=== PATIENT | male | born 1935 | race Caucasian/White ===

== ENCOUNTER 2019-04-11 10:21 | Emergency (ER) | payer MEDICARE, OTHER, SELFPAY ==
--- NOTE | 2019-04-11 10:55 | DI.RAD.S_ITS ---
PROCEDURE: XR HIP W PEL IF DONE LT 2V INDICATIONS: fall TECHNIQUE: 3 views of the hip were acquired. COMPARISON: [facility] [place], CR, XR PELVIS WITH BILATERAL LATERAL HIPS, 10/21/2017, 14:53. FINDINGS: Bones: No fractures or dislocations. A left hip prosthesis is redemonstrated without change in alignment. A periprosthetic lucency medial to the left acetabular component appears similar to the prior study. There is mild axial joint space narrowing in the right hip there The visualized pelvic ring appears intact. Soft tissues: There are scattered vascular calcifications IMPRESSION: 1. No fracture or dislocation. 2. No definite evidence of hardware failure. Dictated by: Benjamin Herzog M.D. on 04/11/2019 at 12:12 Approved by: Benjamin Herzog M.D. on 04/11/2019 at 12:15
[2019-04-11 11:17] VITALS: BP 162/79; PULSE 57; RESP 12; TEMP 36.3; O2SAT 99
--- NOTE | 2019-04-11 11:23 | DI.CT.S_ITS ---
PROCEDURE: CT HEAD/BRAIN WO CON INDICATIONS: glf yesterday, hit head, dizzy TECHNIQUE: Noncontrast 4.5 mm thick angled axial sections acquired from the foramen magnum to the vertex, with coronal and sagittal reformats. For radiation dose reduction, the following was used: automated exposure control, adjustment of mA and/or kV according to patient size. COMPARISON: None. FINDINGS: Image quality: Excellent. CSF spaces: Basal cisterns are patent. No extra-axial fluid collections. The ventricles are symmetric in size and shape. Brain: No intracranial bleeds or masses. There is moderate cerebral volume loss for age, with resultant ventricular and sulcal prominence. There are moderate periventricular and deep white matter chronic small vessel ischemic changes. Chronic left thalamic lacunar infarct. There is intracranial internal carotid artery atherosclerosis. Skull and face: Calvarium and visualized facial bones appear intact, without suspicious lesions. Sinuses: Visualized sinuses and mastoids are clear. IMPRESSION: No acute intracranial disease process. Dictated by: Mari Cortes MD, PhD on 04/11/2019 at 11:00 Approved by: Mari Cortes MD, PhD on 04/11/2019 at 11:05
[2019-04-11] MEDS: LIDOCAINE PATCH 1 EACH ADH..PATCH TOP (11:30)
--- NOTE | 2019-04-11 11:35 | PC.NURSE ---
received report from LUCIUS Harrell. pt [facility], family at side reports he fell yesterday on laminate albino onto L hip and L shoulder, was able to crawl to chair and lift himself up. can partially bear weight with walker. 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 denies pain at time, only reporting pain while partially bearing wgt. 2+ pulses. lidocaine patch applied. XR obtained. awaiting head CT. appears calm and comfortable at this time.
--- NOTE | 2019-04-11 12:21 | ED.LOWEXIN ---
HPI - Extremity Injury (Lower) <MARTA Rowell - Last Filed: 04/11/19 14:05> General Chief Complaint: Extremity Injury, Lower Stated Complaint: fell Time Seen by Provider: 04/11/19 11:09 Source: patient and family Mode of arrival: Wheelchair Limitations: no limitations History of Present Illness HPI Narrative: The patient is an 83-year-old male who presents with his with a history of left hip replacement hypertension who presents with a chief complaint of hip pain. He had a ground level trip and fall yesterday and landed on his left hip. He states that is the side that has been replaced. He denies any neck or back pain. He does state that he hit his head on the floor. No loss of consciousness. He was dizzy this morning, states that is normal for him. Patient states that he is able to ambulate with a walker, though slightly painful to do so. Denies pain on my exam. Related Data Home Medications Medication Instructions Recorded Confirmed metformin [Glucophage] 1,000 mg PO BIDCC #0 04/20/16 04/11/19 amlodipine 5 mg PO DAILY 04/11/19 04/11/19 atorvastatin 10 mg PO DAILY 04/11/19 04/11/19 [id number] [Creon] 0 cap PO DIRECTED 04/11/19 04/11/19 losartan 100 mg PO DAILY 04/11/19 04/11/19 Previous Rx's Medication Instructions Recorded lidocaine 1 patch TOP DAILY #15 each 04/11/19 Allergies Allergy/AdvReac Type Severity Reaction Status Date / Time amoxicillin [From AUGMENTIN] Allergy Mild EVERYTHING Unverified 10/14/17 13:11 SHUTS DOWN clavulanic acid Allergy Mild EVERYTHING Unverified 10/14/17 13:11 [From AUGMENTIN] SHUTS DOWN Review of Systems <MARTA Rowell - Last Filed: 04/11/19 14:05> Review of Systems Narrative: GENERAL: Denies chills, fatigue, malaise, fever, sweats. HEENT: Denies sinus pain, ear pain, sore throat, difficulty swallowing, dizziness. RESPIRATORY: Denies dyspnea, cough, wheezing, hemoptysis, sputum. CARDIOVASCULAR: Denies chest pain, palpitations, orthopnea, edema, GASTROINTESTINAL: Denies nausea, vomiting, abdominal pain, diarrhea, constipation, melena. : Denies dysuria, frequency, incontinence, hematuria, urinary retention. MUSCULOSKELETAL: See HPI SKIN: Denies rash, skin lesions, or other NEUROLOGIC: Denies weakness, headache, numbness, change in speech, confusion, seizures, incoordination. PSYCHIATRIC: No concerning psychosocial issues. 12 point review of systems is negative except for those stated above PFSH <MARTA Rowell - Last Filed: 04/11/19 14:05> Social History (Updated 04/11/19 @ 14:00 by MARTA Rowell) marital status: Social History marital status: Exam <MARTA Rowell - Last Filed: 04/11/19 14:05> Narrative Exam Narrative: GENERAL: Elderly male in no acute distress HEAD: Atraumatic. Normocephalic. No temporal or scalp tenderness. EYES: Pupils equal round and reactive. Extraocular motions intact. No scleral icterus. No injection or drainage. ENT: Nose without bleeding, purulent drainage or septal hematoma. Throat without erythema, tonsillar hypertrophy or exudate. Uvula midline. Airway patent. Hard of hearing. NECK: Trachea midline. No JVD or lymphadenopathy. Supple, nontender, no meningeal signs. CARDIOVASCULAR: Regular rate and rhythm without murmurs, gallops, or rubs. RESPIRATORY: Clear to auscultation. Breath sounds equal bilaterally. No wheezes, rales, or rhonchi. No cough. No increased respiratory effort. No accessory muscle use. GASTROINTESTINAL: Abdomen soft, non-tender, nondistended. No hepato-splenomegaly, or palpable masses. No guarding. EXTREMITIES: No clubbing, cyanosis, or edema. No joint tenderness, effusion, or edema noted. Slight pain to palpation of left hip. Positive pedal pulses bilateral lower extremities. BACK: Nontender without deformity or crepitance. No flank tenderness. NEURO: AOx3. SKIN: No ecchymosis erythema laceration or abrasion noted on left hip. Initial Vital Signs Initial Vital Signs: Vital Signs Temperature 97.4 F L 04/11/19 11:17 Pulse Rate 57 L 04/11/19 11:17 Respiratory Rate 12 04/11/19 11:17 Blood Pressure 162/79 H 04/11/19 11:17 Pulse Oximetry 99 04/11/19 11:17 <Fela Fisher DO - Last Filed: 04/11/19 19:28> Initial Vital Signs Initial Vital Signs: Vital Signs Temperature 97.4 F L 04/11/19 11:17 Pulse Rate 57 L 04/11/19 11:17 Respiratory Rate 12 04/11/19 11:17 Blood Pressure 162/79 H 04/11/19 11:17 Pulse Oximetry 99 04/11/19 11:17 Scores <MARTA Rowell - Last Filed: 04/11/19 14:05> GCS [place] coma scale eye opening: Spontaneous Markos coma scale verbal response: Orientated Markos coma scale motor response: Obey commands [place] coma scale total score: 15 Nexus Score for C-Spine Focal Neurologic deficit present: No Midline spinal tenderness present: No Altered level of conciousness present: No Intoxication present: No Distracting Injury Present: No Nexus Criteria for C-spine: 0 Course <MARTA Rowell - Last Filed: 04/11/19 14:05> Orders Ordered: ED Orders 04/11/19 10:55 XR hip w pel if done LT 2V Stat 04/11/19 11:23 CT head/brain wo con Stat Discontinued Medications Lidocaine (Lidoderm) 1 each TOP NOW ONE Stop: 04/11/19 11:24 Last Admin: 04/11/19 11:30 Dose: 1 each Documented by: JORDYN Vital Signs Vital signs: Vital Signs - 8 hr 04/11/19 13:15 Pulse Rate 60 Respiratory Rate 16 Blood Pressure 158/72 H Pulse Oximetry 97 <Fela Fisher DO - Last Filed: 04/11/19 19:28> Orders Ordered: ED Orders 04/11/19 10:55 XR hip w pel if done LT 2V Stat 04/11/19 11:23 CT head/brain wo con Stat Discontinued Medications Lidocaine (Lidoderm) 1 each TOP NOW ONE Stop: 04/11/19 11:24 Last Admin: 04/11/19 11:30 Dose: 1 each Documented by: JORDYN Vital Signs Vital signs: Vital Signs - 8 hr 04/11/19 13:15 Pulse Rate 60 Respiratory Rate 16 Blood Pressure 158/72 H Pulse Oximetry 97 MDM - Extremity Injury (Lower) <MARTA Rowell - Last Filed: 04/11/19 14:05> Imaging Data CT scan - head: Radiologist's impression: [address] [address] [address] Scan Report Signed Patient: Edwar Saleh PMR#: [id number] : 8Acct:[id number] Age/Sex: 83 / MDate of Service: 04/11/19 Loc: ED Accession Number: [id number] Procedure: CT head/brain wo con Ordering Provider: Fela Ely PROCEDURE: CT HEAD/BRAIN WO CON INDICATIONS: glf yesterday, hit head, dizzy TECHNIQUE: Noncontrast 4.5 mm thick angled axial sections acquired from the foramen magnum to the vertex, with coronal and sagittal reformats. For radiation dose reduction, the following was used: automated exposure control, adjustment of mA and/or kV according to patient size. COMPARISON: None. FINDINGS: Image quality: Excellent. CSF spaces: Basal cisterns are patent. No extra-axial fluid collections. The ventricles are symmetric in size and shape. Brain: No intracranial bleeds or masses. There is moderate cerebral volume loss for age, with resultant ventricular and sulcal prominence. There are moderate periventricular and deep white matter chronic small vessel ischemic changes. Chronic left thalamic lacunar infarct. There is intracranial internal carotid artery atherosclerosis. Skull and face: Calvarium and visualized facial bones appear intact, without suspicious lesions. Sinuses: Visualized sinuses and mastoids are clear. IMPRESSION: No acute intracranial disease process. Dictated by: Mari Cortes MD, PhD on 04/11/2019 at 11:00 Approved by: Mari Cortes MD, PhD on 04/11/2019 at 11:05 hip xray : Radiologist's impression: [address] [address] XRay Report Signed Patient: Edwar Saleh PMR#: [id number] : 8Acct:[id number] Age/Sex: 83 / MDate of Service: 04/11/19 Loc: ED Accession Number: [id number] Procedure: XR hip w pel if done LT 2V Ordering Provider: Fela Fisher D.O. PROCEDURE: XR HIP W PEL IF DONE LT 2V INDICATIONS: fall TECHNIQUE: 3 views of the hip were acquired. COMPARISON: [facility] [place], CR, XR PELVIS WITH BILATERAL LATERAL HIPS, 10/21/2017, 14:53. FINDINGS: Bones: No fractures or dislocations. A left hip prosthesis is redemonstrated without change in alignment. A periprosthetic lucency medial to the left acetabular component appears similar to the prior study. There is mild axial joint space narrowing in the right hip there The visualized pelvic ring appears intact. Soft tissues: There are scattered vascular calcifications IMPRESSION: 1. No fracture or dislocation. 2. No definite evidence of hardware failure. Dictated by: Benjamin Herzog M.D. on 04/11/2019 at 12:12 Approved by: Benjamin Herzog M.D. on 04/11/2019 at 12:15 MDM Narrative Medical decision making narrative: The patient is an 83-year-old male who presents 1 day after a ground level slipper trip and fall the chief complaint of hip pain. He was able to ambulate on his way into the emergency department. He is not on blood thinners, but states he hit his head, so his CT scan was completed to evaluate for intracranial bleeds. This came back negative. The patient was neurovascularly intact. He states that his pain is only when ambulating. He was given a lidocaine patch. He was able to ambulate well with a walker and had negative x-rays. The patient stated he fell ready to go home, and agreed. I discussed at length coming back to emergency department for any acute concerns such as chest pain, shortness of breath etc. Encouraged follow-up with PCP as well as Orthopedics if needed. No questions or concerns upon discharge. Patient's states understanding of follow-up care as well as return precautions. Discharge Plan Departure Patient Disposition: Home Clinical Impression: Fall from ground level, Right inguinal hernia Acute hip pain Qualifiers: Laterality: right Qualified Code(s): M25.551 - Pain in right hip Discharge Date/Time: 04/11/19 13:00 Instructions: How to Choose and Use a Walker, Help for Hip Pain, DI for Contusion, DI for Hip Pain Activity Restrictions/Additional Instructions: Your x-ray of your hip came back with no acute fractures and your able to ambulate well with a walker. Please follow up with primary care provider as well as Orthopedics. Please use ice, [id number] medications as needed for pain. I have given you a prescription of lidocaine patch. Please come back to emergency department for any acute concerns such as chest pain, shortness of breath concern of heart attack stroke etc Prescriptions: New lidocaine 5 % adhesive patch,medicated 1 patch TOP DAILY Qty: 15 RF: 0 No Action metformin [Glucophage] 1,000 MG tablet 1,000 mg PO BIDCC Qty: 0 RF: 0 atorvastatin 10 mg tablet 10 mg PO DAILY RF: 0 amlodipine 5 mg tablet 5 mg PO DAILY RF: 0 losartan 100 mg tablet 100 mg PO DAILY RF: 0 Creon 12,000-38,000 -60,000 unit capsule,delayed release(DR/EC) 0 cap PO DIRECTED RF: 0 Referrals: Christina Mae MD [Family Provider] -
--- NOTE | 2019-04-11 12:29 | PC.NURSE ---
Pt appears comfortable. updated on results of CT and XR. NAD.
--- NOTE | 2019-04-11 12:48 | PC.NURSE ---
Ambulated pt to BR wit walker. pt tolerated well. gait is slow. assisted to dress and awaiting DC
[2019-04-11 13:15] VITALS: BP 158/72; PULSE 60; RESP 16; O2SAT 97
== END 2019-04-11 13:00 | disposition home or self-care (01) ==
PROVIDERS: Emergency Provider Nurse Practitioner Family; Family Provider Student in an Organized Health Care Education/Training Program
DX: M25.551 Pain in right hip (principal); K40.90 Unilateral inguinal hernia, without obstruction or gangrene, not specified as recurrent; R42 Dizziness and giddiness; S09.90XA Unspecified injury of head, initial encounter; W01.0XXA Fall on same level from slipping, tripping and stumbling without subsequent striking against object, initial encounter
CPT/HCPCS: 70450; 73502; 99282; 99284

== ENCOUNTER → 2019-05-03 11:00 | Outpatient (CLI) | payer MEDICARE, OTHER, SELFPAY ==
--- NOTE | 2019-05-03 | DI.NM.S_ITS ---
PROCEDURE: NM BONE SCAN WHOLE BODY RADIOPHARMACEUTICAL: 20.7 mCi Tc-99m MDP IV. INDICATIONS: Pain in left hip TECHNIQUE: Delayed whole-body scintigrams were obtained approximately 3-4 hours after intravenous injection of radiotracer. Anterior and posterior views were acquired from vertex to feet. Additional left and right oblique views of the thoracic cage and pelvis were obtained. COMPARISON: [facility], CR, XR HIP W PEL IF DONE LT 2V, 04/11/2019, 11:02. [facility] [place], CR, XR PELVIS WITH BILATERAL LATERAL HIPS, 10/21/2017, 14:53. [facility] [place], CR, XR PELVIS WITH LATERAL HIP LEFT, 04/26/2019, 14:14. FINDINGS: There is a focal uptake in the posterior medial aspect of the left seventh rib. There is postsurgical changes with left hip arthroplasty. Increased uptake is seen in the area of the left greater trochanter, which could represent subacute fracture. No lesions are identified in skull, sternum, clavicles, scapulae, bony pelvis, and visualized shafts of the long bones. There is low level increased uptake in cervical, thoracic and lumbar spine with distribution indistinguishable from degenerative disc and facet disease. Increased uptake in shoulders bilaterally with bilaterally and hands bilaterally, consistent with degenerative joint disease. IMPRESSION: 1. Left hip arthroplasty. There is increased uptake in the area of the left greater trochanter which could represent subacute fracture. 2. Increased activity in the posterior medial aspect of the left seventh rib. Recommend radiographic correlation. Dictated by: Tamiko Peñaloza M.D. on 05/03/2019 at 17:02 Approved by: Tamiko Peñaloza M.D. on 05/03/2019 at 18:25
== END ==
PROVIDERS: Family Provider Student in an Organized Health Care Education/Training Program; PCP Student in an Organized Health Care Education/Training Program; Visit Provider Orthopaedic Surgery
DX: M25.552 Pain in left hip (principal); Z96.642 Presence of left artificial hip joint
CPT/HCPCS: 78306; A9503

== ENCOUNTER 2020-01-05 03:45 | Emergency (ER) | payer MEDICARE, OTHER, SELFPAY ==
[2020-01-05] VITALS (15 sets, daily range): BP systolic 174–229; BP diastolic 86–114; PULSE 61–77; RESP 12–31; TEMP 36.1; O2SAT 99–100
--- NOTE | 2020-01-05 03:45 | DI.CT.S_ITS ---
PROCEDURE: CT CERVICAL SPINE WO CON INDICATIONS: fall with head and neck pain TECHNIQUE: Noncontrast 3 mm thick sections acquired from the skull base to the T4 level. Sagittal and coronal reformats were then constructed. For radiation dose reduction, the following was used: automated exposure control, adjustment of mA and/or kV according to patient size. COMPARISON: None. FINDINGS: Image quality: Excellent. Bones: No fractures or dislocations. There is grade 1 anterolisthesis of C3 on C4. Degenerative disease is present, severe at C5-C6, mild at C4-C5. There is bilateral facet arthropathy, most pronounced at C2-C3 and C3-C4 on the left. Visualized superior ribs are intact. Soft tissues: Prevertebral soft tissues are normal in thickness. No paravertebral hematomas. No apical pneumothoraces. Moderate emphysema. Biapical scars. There is a 7 mm nodule in the right thyroid lobe. Severe atherosclerosis. IMPRESSION: 1. No fracture or dislocation. 2. Degenerative changes in cervical spine. No significant discrepancy with the vp compliance radiology preliminary report. Dictated by: Tamiko Peñaloza M.D. on 01/05/2020 at 7:33 Approved by: Tamiko Peñaloza M.D. on 01/05/2020 at 7:37
--- NOTE | 2020-01-05 03:45 | DI.CT.S_ITS ---
PROCEDURE: CT HEAD/BRAIN WO CON INDICATIONS: fall with head and neck pain TECHNIQUE: Noncontrast 4.5 mm thick angled axial sections acquired from the foramen magnum to the vertex, with coronal and sagittal reformats. For radiation dose reduction, the following was used: automated exposure control, adjustment of mA and/or kV according to patient size. COMPARISON: [facility], CT, CT HEAD/BRAIN WO CON, 04/11/2019, 11:45. FINDINGS: Image quality: Excellent. CSF spaces: Basal cisterns are patent. No extra-axial fluid collections. The ventricles are symmetric in size and shape. Brain: No intracranial bleeds or masses. There is cerebral volume loss for age, with resultant ventricular and sulcal prominence. There are periventricular and deep white matter chronic small vessel ischemic changes. There is intracranial internal carotid artery atherosclerosis. Skull and face: Calvarium and visualized facial bones appear intact, without suspicious lesions. Sinuses: Mucosal thickening noted in the left maxillary sinus. The mastoids are clear. IMPRESSION: No acute intracranial disease process. Dictated by: Mari Cortes MD, PhD on 01/05/2020 at 7:25 Approved by: Mari Cortes MD, PhD on 01/05/2020 at 7:27
--- NOTE | 2020-01-05 03:48 | ED.FALL ---
HPI - Fall General Chief Complaint: Fall Stated Complaint: Fall with R. Shoulder Pain Time Seen by Provider: 01/05/20 03:45 Source: patient and EMS Mode of arrival: EMS Limitations: no limitations History of Present Illness HPI Narrative: 84M with history of HTN, hyperlipidemia, and mild dementia presents by EMS for evaluation of an unwitnessed fall with head and shoulder pain. Patient tends to be slightly confused at baseline but not typically this bad per the . When the medics arrived he was unable to tell them where he is and this is not normal per the . It is unclear but he may have slipped down his many is 5 stairs. It is unclear if there was any loss of consciousness. He does not take any blood thinners and denies use of alcohol or street drugs. was awoken by the sound of him falling, there was very minimum down time. MD complaint: fall Onset (ago): minute(s) Fall from: down stairs (#) (5) Fall witnessed: no Place fall occurred: home Loss of consciousness: unsure Prolonged down time: unclear Location of injury: head and back Related Data Home Medications Medication Instructions Recorded Confirmed metformin [Glucophage] 1,000 mg PO BIDCC #0 04/20/16 04/11/19 amlodipine 5 mg PO DAILY 04/11/19 04/11/19 atorvastatin 10 mg PO DAILY 04/11/19 04/11/19 [id number] [Creon] 0 cap PO DIRECTED 04/11/19 04/11/19 losartan 100 mg PO DAILY 04/11/19 04/11/19 Previous Rx's Medication Instructions Recorded lidocaine 1 patch TOP DAILY #15 each 04/11/19 Allergies Allergy/AdvReac Type Severity Reaction Status Date / Time amoxicillin [From AUGMENTIN] Allergy Mild EVERYTHING Unverified 10/14/17 13:11 SHUTS DOWN clavulanic acid Allergy Mild EVERYTHING Unverified 10/14/17 13:11 [From AUGMENTIN] SHUTS DOWN Review of Systems Review of Systems ROS Unobtainable: Unobtainable due to mental status/LOC Constitutional Constitutional: Denies chills, Denies fatigue, Denies fever(s), Denies frequent falls, Denies lethargy and Denies weakness Eyes Eyes: Denies change in vision, Denies eye discharge, Denies irritation and Denies loss of vision ENT Ears, Nose, Mouth, and Throat: Denies change in voice, Denies dizziness, Denies neck pain, Denies sore throat and Denies throat swelling Cardiovascular Cardiovascular: Denies chest pain, Denies irregular heart rhythm, Denies lightheadedness, Denies palpitations, Denies dyspnea, Denies dyspnea on exertion and Denies orthopnea Respiratory Respiratory: Denies cough, Denies dyspnea, Denies dyspnea on exertion and Denies wheezing Gastrointestinal Gastrointestinal: Denies abdominal pain, Denies change in bowel habits, Denies diarrhea, Denies nausea and Denies vomiting Musculoskeletal Musculoskeletal: Denies neck pain and Denies numbness Integumentary/Breasts Skin/Breast: Denies pruritus, Denies erythema, Denies rash and Denies wounds Neurologic Neurologic: Denies behavioral changes, Denies confusion, Denies dizziness, Denies frequent falls, Denies loss of vision, Denies numbness and Denies weakness Psychiatric Psychiatric: Denies anxiety, Denies behavioral changes, Denies confusion, Denies depression, Denies homicidal ideation and Denies suicidal ideation Endocrine Endocrine: Denies fatigue, Denies flushing and Denies palpitations Hematologic/Lymphatic Hematologic/Lymphatic: Denies easy bruising Allergic/Immunologic Allergic/Immunologic: Denies urticaria, Denies throat swelling and Denies wheezing Patient History Social History marital status: Smoking Status: Former smoker Smoking Status: Former smoker Exam Narrative Exam Narrative: GENERAL: [84] year old patient appears stated age. A bit frail and elderly, confused but awake HEAD: Superficial abrasion to right parietal region, no hematoma or depressed skull fracture EYES: Pupils equal round and reactive. Extraocular motions intact. No scleral icterus. No injection or drainage. ENT: Nose without bleeding, purulent drainage. Throat without erythema, tonsillar hypertrophy or exudate. Airway patent. NECK: Trachea midline. Non tender CARDIOVASCULAR: Regular rate and rhythm without murmurs, gallops, or rubs. RESPIRATORY: Clear to auscultation. Breath sounds equal bilaterally. No wheezes, rales, or rhonchi. GASTROINTESTINAL: Abdomen soft, non-tender, nondistended. EXTREMITIES: Tenderness to R shoulder, mostly posteriorly with superficial abrasions. Full ROM and strength. R elbow also with some superficial tenderness, but no bony point tenderness, full ROM and strength with flexion, extension, pronation and suppination. No hip or LE pain BACK: Nontender without deformity or crepitance. No flank tenderness. NEURO: AOx3. SKIN: No rash or erythema of visible areas Initial Vital Signs Initial Vital Signs: Vital Signs Temperature 97.0 F L 01/05/20 03:45 Pulse Rate 74 01/05/20 03:45 Respiratory Rate 14 01/05/20 03:45 Blood Pressure 210/102 H 01/05/20 03:45 Pulse Oximetry 100 01/05/20 03:45 Course Orders Ordered: ED Orders 01/05/20 03:45 CT cervical spine wo con Stat CT head/brain wo con Stat 01/05/20 03:50 CT chest abd pel w con Stat 01/05/20 04:00 Basic Metabolic Panel Stat Complete Blood Count AUTO DIFF Stat Ethanol (ETOH) Stat Prolactin Stat Troponin & CK Cardiac Panel Stat 01/05/20 04:02 EKG-12 Lead Stat Discontinued Medications Amlodipine Besylate (Norvasc) 5 mg PO NOW ONE Stop: 01/05/20 04:49 Last Admin: 01/05/20 05:40 Dose: Not Given Documented by: HONORIO Hydralazine HCl (Apresoline) 10 mg IV NOW ONE Stop: 01/05/20 04:50 Last Admin: 01/05/20 05:00 Dose: 10 mg Documented by: HONORIO Vital Signs Vital signs: Vital Signs - 8 hr 01/05/20 03:45 01/05/20 04:30 01/05/20 04:36 Temperature 97.0 F L Pulse Rate 74 77 76 Respiratory Rate 14 17 14 Blood Pressure 210/102 H 229/114 H Pulse Oximetry 100 99 99 01/05/20 04:45 01/05/20 05:00 Temperature Pulse Rate 67 61 Respiratory Rate 14 12 Blood Pressure 197/95 H 180/95 H Pulse Oximetry 99 100 MDM - Fall Lab Data Result diagrams: 01/05/20 04:00 01/05/20 04:00 Labs: Lab Results 01/05/20 01/05/20 01/05/20 Range/Units 04:00 04:00 04:00 WBC 18.1 H (4.5-11.0) X10^3/uL RBC 4.10 L (4.5-5.9) X10^6/uL Hgb 13.2 L (13.5-17.5) g/dL Hct 38.2 L (41-53) % MCV 93.2 (80-100) fL MCH 32.2 (26-34) PG MCHC 34.5 (30-36) % RDW 13.8 (11.6-14.8) % Plt Count 180 (150-400) X10^3/uL Neut % (Auto) 42.4 L (50-75) % Lymph % (Auto) 50.9 H (25-40) % [place] % (Auto) 4.8 (3-14) % Eos % (Auto) 1.5 L (2-4) % Baso % (Auto) 0.4 (0-2) % Neut # (Auto) 7700 H (1275-6643) /uL Lymph # (Auto) 9200 H (6692-9645) /uL [place] # (Auto) 900 (0-900) /uL Eos # (Auto) 300 (0-450) /uL Baso # (Auto) 100 (0-100) /uL Sodium 140 (137-145) mmol/L Potassium 3.9 (3.4-5.1) mmol/L Chloride 104 (98-107) mmol/L Carbon Dioxide 27 (22-32) mmol/L BUN 19 (9-20) mg/dL Creatinine 0.99 (0.66-1.25) mg/dL Estimated GFR > 60.0 (>60) mL/min BUN/Creatinine Ratio 19.2 (6-22) Glucose 136 H (80-110) mg/dL Calcium 9.8 (8.4-10.2) mg/dL Total Creatine Kinase 149 (55-170) U/L CK-MB (CK-2) 4.10 H (<2.37) ng/mL CK-MB (CK-2) Rel Index 2.8 (1.5-5.0) % Troponin I < 0.012 (0.01-0.034) ng/mL Prolactin 15.0 (3.7-17.9) ng/mL Ethyl Alcohol < 10 ( - 10) mg/dL Urine Dip Bedside Urine Glucose Negative Bedside Urine Bilirubin - Negative Bedside Urine Ketone - Negative Urine Specific [place] 1.010 Bedside Urine Occult Blood +/- Bedside Urine pH 6 Bedside Urine Protein - Negative Bedside Urine Urobilinogen - Negative Bedside Urine Nitrite - Negative Bedside Urine Leukocytes - Negative Esterase Imaging Data CT scan - head: Radiologist's Impression: No fx or bleed CT - cervical spine: Radiologist's Impression: No fx CT scan - chest: Radiologist's Impression: No traumatic injury MDM Narrative Medical decision making narrative: Patient at baseline per . No significant findings on imaging. comfortable with the plan. Return precautions given. Questions answered to their apparent satisfaction. Discharge Plan Departure Patient Disposition: Home Clinical Impression: Contusion of scalp Qualifiers: Encounter type: initial encounter Qualified Code(s): S00.03XA - Contusion of scalp, initial encounter Contusion of right shoulder Qualifiers: Encounter type: initial encounter Qualified Code(s): S40.011A - Contusion of right shoulder, initial encounter Instructions: DI for Contusion, How to Prevent Falls Activity Restrictions/Additional Instructions: *You have been diagnosed with [fall with minor injuries] *What to do: *Take medications as directed *Follow up with your primary care provider in 2-3 days, call for an appointment. Let them know you were seen in the Emergency Department and that we ask that you be seen in follow up *Return to ER if you should have any new, worsening or concerning symptoms Prescriptions: No Action metformin [Glucophage] 1,000 MG tablet 1,000 mg PO BIDCC Qty: 0 RF: 0 atorvastatin 10 mg tablet 10 mg PO DAILY RF: 0 amlodipine 5 mg tablet 5 mg PO DAILY RF: 0 losartan 100 mg tablet 100 mg PO DAILY RF: 0 Creon 12,000-38,000 -60,000 unit capsule,delayed release(DR/EC) 0 cap PO DIRECTED RF: 0 lidocaine 5 % adhesive patch,medicated 1 patch TOP DAILY Qty: 15 RF: 0 Referrals: Christina Mae MD [Primary Care Provider] -
--- NOTE | 2020-01-05 03:50 | DI.CT.S_ITS ---
PROCEDURE: CT CHEST ABD PEL W CON INDICATIONS: fall down 5 stairs TECHNIQUE: After the administration of intravenous contrast, 5 mm thick sections acquired from the lung apices to the symphysis. 2.5 mm thick coronal and sagittal reformats were acquired. Additional 7 mm thick coronal maximum intensity projection (MIP) reformats acquired through the lungs. Optional 10-minute delayed imaging may be performed from the kidneys to the bladder. For radiation dose reduction, the following was used: automated exposure control, adjustment of mA and/or kV according to patient size. COMPARISON: [facility], CT, KIDNEY/ URETER/BLADDER, 03/23/2017, 11:20. [facility], CT, KIDNEY/ URETER/BLADDER, 04/20/2016, 22:39. FINDINGS: Image quality: Excellent. CHEST: Lungs: No pulmonary contusions or lacerations. Upper lobe predominant centrilobular emphysema. Scattered scarring and atelectasis. Airway thickening in keeping with nonspecific bronchitis and/or reactive airways disease. No acute airspace opacities. No pneumothorax or hemothorax. Central and peripheral airways appear patent and normal in caliber. Mediastinum: No mediastinal hematomas. Heart size is normal. No pericardial effusion. Thoracic aorta and pulmonary arteries demonstrate normal size and enhancement. No mediastinal or hilar adenopathy. Esophagus is normal in caliber. No hiatal hernia. Chest wall: No rib fractures. No subcutaneous emphysema. No axillary or supraclavicular adenopathy. Thyroid gland. ABDOMEN: Solid organs: Hypodense lesion with peripheral nodular enhancement seen within the inferior liver tip presumably hemangioma. This measures approximate 3 cm. Gallbladder negative. Biliary system is non-dilated. Numerous pancreatic calcifications and atrophy in keeping with chronic pancreatitis Spleen is normal in size and enhancement, without lacerations. No adrenal hematomas. Both kidneys enhance normally, without hydronephrosis or lacerations. Bilateral simple renal cysts. Peritoneum and bowel: No free fluid or air. Unenhanced bowel loops demonstrate normal wall thickness and caliber. Simple appearing cystic lesion seen in the left upper quadrant, image 77/10 measures 3.8 x 3.3 cm. Exact origin is unclear and could be pancreatic or bowel. This appears new since the prior study dated 03/23/17. Nodes and vessels: No retroperitoneal or mesenteric adenopathy. Minimal ectasia of the distal abdominal aorta measuring 2.5 cm. Scattered vascular calcifications seen in the aorta. Miscellaneous: No ventral hernias. PELVIS: Genitourinary: Bladder wall thickness is normal. Miscellaneous: No inguinal hernias or adenopathy. Bones: Pelvic ring and hip joints appear intact. No vertebral compression fractures. Left hip arthroplasty IMPRESSION: Overall, no acute traumatic abnormality Upper lobe predominant centrilobular emphysema Hypoattenuating lesion within the inferior liver tip with enhancement pattern that suggests hemangioma Incidentally noted cystic lesion in the left upper quadrant, possibly pancreatic or bowel in origin however technically indeterminate. This appears new since prior study. Technically, cystic pancreatic lesion cannot be excluded and consider further evaluation with contrast-enhanced pancreatic protocol MRI after the patient's acute episode has resolved. This finding personally telephoned and discussed with Dr. Chavez in the emergency department at 0842 hours 01/05/20 Otherwise, findings concordant with the preliminary study interpretation provided at the time of the exam. Dictated by: Guillaume Yun M.D. on 01/05/2020 at 8:14 Approved by: Guillaume Yun M.D. on 01/05/2020 at 8:46
[2020-01-05 04:07] LABS: Add Manual Diff / Slide Review NO; Basophils Absolute Auto 100 /uL (0-100); Basophils Percent Auto 0.4 % (0-2); Eosinophils Absolute Auto 300 /uL (0-450); Eosinophils Percent Auto 1.5 % (2-4); Hematocrit 38.2 % (41-53); Hemoglobin 13.2 g/dL (13.5-17.5); Lymphocytes Absolute Auto 9200 /uL (1100-4500); Lymphocytes Percent Auto 50.9 % (25-40); Mean Corpuscular HGB Conc 34.5 % (30-36); Mean Corpuscular Hemoglobin 32.2 PG (26-34); Mean Corpuscular Volume 93.2 fL (80-100); Monocytes Absolute Auto 900 /uL (0-900); Monocytes Percent Auto 4.8 % (3-14); Neutrophils Absolute Auto 7700 /uL (1500-7000); Neutrophils Percent Auto 42.4 % (50-75); Platelet Count 180 X10^3/uL (150-400); Red Cell Distribution Width 13.8 % (11.6-14.8); White Blood Cell Count 18.1 X10^3/uL (4.5-11.0)
[2020-01-05 04:15] LABS: BUN Creatinine Ratio 19.2 (6-22); Blood Urea Nitrogen 19 mg/dL (9-20); Calcium 9.8 mg/dL (8.4-10.2); Carbon Dioxide 27 mmol/L (22-32); Chloride 104 mmol/L (98-107); Estimated Glomerular Filt Rate > 60.0 mL/min (>60); Glucose 136 mg/dL (80-110); HEMOLYSIS < 15 (0-50); Potassium 3.9 mmol/L (3.4-5.1); Sodium 140 mmol/L (137-145)
[2020-01-05 04:16] LABS: Creatine Kinase 149 U/L (55-170); Ethanol (ETOH) < 10 mg/dL
[2020-01-05 04:28] LABS: Troponin I < 0.012 ng/mL (0.01-0.034)
[2020-01-05 04:31] LABS: CKMB % Relative Index 2.8 % (1.5-5.0)
[2020-01-05] MEDS: HYDRALAZINE 20 MG/ML VIAL 10 MG IV (05:00)
[2020-01-05] MEDS: AMLODIPINE 2.5 MG TABLET 5 MG PO (05:01)
--- NOTE | 2020-01-05 05:39 | PC.NURSE ---
CT negative and collar removed per Dr. Gomez.
--- NOTE | 2020-01-05 05:41 | PC.NURSE ---
Spouse reports pt, doesn't take amlodipine anymore. States takes losartan. Has patients morning dose, Provider ok for patient to take his home med of losartan 100mg
== END 2020-01-05 06:10 | disposition home or self-care (01) ==
PROVIDERS: Emergency Provider Emergency Medicine; Family Provider Student in an Organized Health Care Education/Training Program; PCP Student in an Organized Health Care Education/Training Program
DX: S00.03XA Contusion of scalp, initial encounter (principal); S40.011A Contusion of right shoulder, initial encounter; W19.XXXA Unspecified fall, initial encounter; I10 Essential (primary) hypertension; E78.5 Hyperlipidemia, unspecified; F03.90 Unspecified dementia, unspecified severity, without behavioral disturbance, psychotic disturbance, mood disturbance, and anxiety
CPT/HCPCS: 36415; 70450; 71260; 72125; 74177; 80048; 80320; 81003; 82550; 82553; 84146; 84484; 85025; 93005; 96374; 99284; 99285; J0360; Q9967

== ENCOUNTER 2020-02-10 16:38 | Emergency (ER) | payer MEDICARE, OTHER, SELFPAY ==
[2020-02-10] VITALS (18 sets, daily range): BP systolic 137–238; BP diastolic 79–116; PULSE 64–78; RESP 14–33; TEMP 36.9; O2SAT 81–100
--- NOTE | 2020-02-10 16:48 | DI.RAD.S_ITS ---
PROCEDURE: XR CHEST 1V INDICATIONS: Weakness, unresponsiveness TECHNIQUE: One view of the chest was acquired. COMPARISON: [facility], CT, CT CHEST ABD PEL W CON, 01/05/2020, 4:06. FINDINGS: Surgical changes and devices: None. Lungs and pleura: Hyperexpanded lungs consistent with COPD and emphysema. No focal consolidation. No pleural effusions or pneumothorax. Mediastinum: Mediastinal contours appear normal. Aortic atherosclerosis. Heart size is normal. Bones and chest wall: No suspicious bony lesions. Overlying soft tissues appear unremarkable. IMPRESSION: No acute cardiopulmonary process demonstrated radiographically. Dictated by: Abilio Eastman M.D. on 02/10/2020 at 17:40 Approved by: Abilio Eastman M.D. on 02/10/2020 at 17:42
[2020-02-10 16:57] LABS: Add Manual Diff / Slide Review NO; Basophils Absolute Auto 100 /uL (0-100); Basophils Percent Auto 0.7 % (0-2); Eosinophils Absolute Auto 100 /uL (0-450); Eosinophils Percent Auto 0.8 % (2-4); Hematocrit 35.4 % (41-53); Hemoglobin 11.6 g/dL (13.5-17.5); Lymphocytes Absolute Auto 6700 /uL (1100-4500); Lymphocytes Percent Auto 46.1 % (25-40); Mean Corpuscular HGB Conc 32.8 % (30-36); Mean Corpuscular Hemoglobin 30.9 PG (26-34); Monocytes Absolute Auto 800 /uL (0-900); Monocytes Percent Auto 5.4 % (3-14); Neutrophils Absolute Auto 6800 /uL (1500-7000); Platelet Count 239 X10^3/uL (150-400); Red Blood Cell Count 3.76 X10^6/uL (4.5-5.9); Red Cell Distribution Width 13.3 % (11.6-14.8); White Blood Cell Count 14.6 X10^3/uL (4.5-11.0)
[2020-02-10 17:10] LABS: Alanine Aminotransferase 18 IU/L (<50); Albumin 3.8 g/dL (3.5-5.0); Albumin Globulin Ratio 1.4 (1.0-2.8); Alkaline Phosphatase 161 U/L (38-126); Aspartate Aminotransferase 26 IU/L (17-59); BUN Creatinine Ratio 38.9 (6-22); Bilirubin Total 0.6 mg/dL (0.2-1.3); Blood Urea Nitrogen 35 mg/dL (9-20); Calcium 10.5 mg/dL (8.4-10.2); Carbon Dioxide 28 mmol/L (22-32); Chloride 99 mmol/L (98-107); Estimated Glomerular Filt Rate > 60.0 mL/min (>60); Globulin 2.8 g/dL (1.7-4.1); Glucose 482 mg/dL (80-110); Lactate (Lactic Acid) 2.5 mmol/L (0.7-2.1); Potassium 4.8 mmol/L (3.4-5.1); Sodium 135 mmol/L (137-145); Total Protein 6.6 g/dL (6.3-8.2)
[2020-02-10] MEDS: SODIUM CHLORIDE 0.9% 1,000 ML 1000 ML IV ×2 (17:10→18:55)
--- NOTE | 2020-02-10 17:25 | PC.NURSE ---
Patient's states that the patient had fall on January 04 from a mechanical issue. Tripped in the dark. Since then he has been declining in energy. He has been peeing more frequently and eating less food for the last 2 weeks. The reports that she does not check his blood glucose and that she leaves it up to him. She stated that she did not give him his metformin or losartin potassium today.
--- NOTE | 2020-02-10 17:36 | ED.GENADULT ---
HPI - General Adult <Domonique Chavez DO - Last Filed: 02/18/20 07:17> General Chief complaint: Diabetic Problem Stated complaint: Decreased BP, Hyperglycemia Time Seen by Provider: 02/10/20 16:47 Source: patient, family and EMS Mode of arrival: EMS Limitations: no limitations History of Present Illness HPI narrative: Patient is an 84-year-old male extremely hard of hearing diabetic, presenting as altered mental status, states he was going from the shower to the bedroom in he felt as if he could go any further he grabbed from the chair to the bar and was gripping the bar with both hands extremely tight and was even shaking a little bit. He is able to talk to his but he could not release his hands from the bar be lower to the ground or get bedroom. states that he has had decreased appetite over the last 1 we can significantly so yesterday. He has not had any nausea or murmur vomiting he really denies any pain to both her and I. She says he has progressively just gotten weaker. Related Data Home Medications Medication Instructions Recorded Confirmed metformin [Glucophage] 1,000 mg PO BIDCC #0 04/20/16 04/11/19 amlodipine 5 mg PO DAILY 04/11/19 04/11/19 atorvastatin 10 mg PO DAILY 04/11/19 04/11/19 [id number] [Creon] 0 cap PO DIRECTED 04/11/19 04/11/19 losartan 100 mg PO DAILY 04/11/19 04/11/19 Previous Rx's Medication Instructions Recorded lidocaine 1 patch TOP DAILY #15 each 04/11/19 Allergies Allergy/AdvReac Type Severity Reaction Status Date / Time amoxicillin [From AUGMENTIN] Allergy Mild EVERYTHING Verified 02/10/20 16:48 SHUTS DOWN clavulanic acid Allergy Mild EVERYTHING Verified 02/10/20 16:48 [From AUGMENTIN] SHUTS DOWN Review of Systems <DO Dana Lambert Last Filed: 02/18/20 07:17> Review of Systems ROS Unobtainable: All systems reviewed & are unremarkable except as noted in HPI and below Constitutional Constitutional: Reports as per HPI, Reports fatigue, Denies frequent falls, Reports poor appetite and Reports weakness Eyes Eyes: Denies change in vision, Denies eye discharge, Denies irritation and Denies loss of vision Cardiovascular Cardiovascular: Denies chest pain, Denies irregular heart rhythm, Denies lightheadedness, Denies palpitations, Denies dyspnea, Denies dyspnea on exertion and Denies orthopnea Respiratory Respiratory: Denies cough, Denies dyspnea, Denies dyspnea on exertion and Denies wheezing Gastrointestinal Gastrointestinal: Denies abdominal pain, Denies change in bowel habits, Denies diarrhea, Denies nausea and Denies vomiting Musculoskeletal Musculoskeletal: Denies back pain and Denies muscle cramps Integumentary/Breasts Skin/Breast: Denies pruritus, Denies erythema, Denies rash and Denies wounds Neurologic Neurologic: Denies frequent falls, Denies loss of vision and Reports weakness Endocrine Endocrine: Reports fatigue and Denies palpitations Allergic/Immunologic Allergic/Immunologic: Denies wheezing Patient History <Domonique Chavez DO - Last Filed: 02/18/20 07:17> Medical History Diabetes (Acute) Hypertension (Acute) Social History marital status: Smoking Status: Former smoker Smoking Status: Former smoker Exam <Domonique Chavez DO - Last Filed: 02/18/20 07:17> Initial Vital Signs Initial Vital Signs: Vital Signs Temperature 98.5 F 02/10/20 16:48 Pulse Rate 77 02/10/20 16:48 Blood Pressure 137/79 02/10/20 16:48 Pulse Oximetry 98 02/10/20 16:48 GENERAL: Week thin elderly male and in no acute distress. HEENT: Head atraumatic, hard of hearing EOMI, pupils reactive, face symmetric, dry mucous membranes CARDIOVASCULAR: Regular rate and rhythm without murmurs, rubs or gallops. RESPIRATORY: Breath sounds equal bilaterally, no wheezes rales or rhonchi. ABDOMEN: Soft, nontender. Normoactive bowel sounds all 4 quadrants. No guarding or rebound. EXTREMITIES: Normal range of motion, no clubbing or edema. Neurovascularly intact NEUROLOGICAL: Moving all extremities no focal deficits . Film Coater strength equal bilaterally SKIN: Warm, dry, no laceration, no petechiae, no rashes or lesions. <Dylan Gomez DO - Last Filed: 02/11/20 01:33> Initial Vital Signs Initial Vital Signs: Vital Signs Temperature 98.5 F 02/10/20 16:48 Pulse Rate 77 02/10/20 16:48 Blood Pressure 137/79 02/10/20 16:48 Pulse Oximetry 98 02/10/20 16:48 Course <Domonique Chavez DO - Last Filed: 02/18/20 07:17> Orders Ordered: Discontinued Medications Sodium Chloride (Normal Saline 0.9%) 1,000 mls @ 1,000 mls/hr IV BOLUS ONE Stop: 02/10/20 17:46 Last Infusion: 02/10/20 18:09 Dose: 0 mls/hr Documented by: Admin: 02/10/20 17:10 Dose: 1,000 mls/hr Documented by: NATALIA Sodium Chloride (Normal Saline 0.9%) 1,000 mls @ 1,000 mls/hr IV BOLUS PRN PRN Reason: Fluid replacement Last Infusion: 02/10/20 20:36 Dose: 0 mls/hr Documented by: Admin: 02/10/20 18:55 Dose: 1,000 mls/hr Documented by: NATALIA Vital Signs Vital signs: Vital Signs - 8 hr 02/10/20 17:31 02/10/20 17:42 02/10/20 17:45 Pulse Rate 68 67 64 Respiratory Rate 15 18 16 Blood Pressure 157/84 H 160/87 H Pulse Oximetry 100 100 100 02/10/20 18:00 02/10/20 18:15 02/10/20 18:30 Pulse Rate 65 66 73 Respiratory Rate 22 16 23 Blood Pressure 160/87 H 159/91 H 155/90 H Pulse Oximetry 100 100 100 02/10/20 18:45 02/10/20 19:00 02/10/20 19:15 Pulse Rate 68 65 65 Respiratory Rate 33 H 25 H 19 Blood Pressure 177/87 H 169/90 H 170/93 H Pulse Oximetry 87 L 100 99 02/10/20 19:30 02/10/20 19:45 02/10/20 19:50 Pulse Rate 66 69 72 Respiratory Rate 24 32 H 14 Blood Pressure 179/97 H 183/99 H 194/108 H Pulse Oximetry 98 81 L 99 02/10/20 19:52 02/10/20 19:55 02/10/20 20:00 Pulse Rate 78 69 72 Respiratory Rate 27 H Blood Pressure 238/116 H 203/93 H 185/99 H Pulse Oximetry 94 98 02/10/20 20:15 02/10/20 20:30 Pulse Rate 69 69 Respiratory Rate 15 15 Blood Pressure 181/102 H 191/105 H Pulse Oximetry 99 95 <Dylanconstantin Gomez DO - Last Filed: 02/11/20 01:33> Course Course Narrative: patient received in signout from Dr. Chavez. I've performed an independent history and physical. He's ambulating at his baseline. is comfortable with his improvement. I've spoken with his PCP who will follow as an outpatient. Orders Ordered: Discontinued Medications Sodium Chloride (Normal Saline 0.9%) 1,000 mls @ 1,000 mls/hr IV BOLUS ONE Stop: 02/10/20 17:46 Last Infusion: 02/10/20 18:09 Dose: 0 mls/hr Documented by: Admin: 02/10/20 17:10 Dose: 1,000 mls/hr Documented by: NATALIA Sodium Chloride (Normal Saline 0.9%) 1,000 mls @ 1,000 mls/hr IV BOLUS PRN PRN Reason: Fluid replacement Last Infusion: 02/10/20 20:36 Dose: 0 mls/hr Documented by: Admin: 02/10/20 18:55 Dose: 1,000 mls/hr Documented by: NATALIA Vital Signs Vital signs: Vital Signs - 8 hr 02/10/20 17:31 02/10/20 17:42 02/10/20 17:45 Pulse Rate 68 67 64 Respiratory Rate 15 18 16 Blood Pressure 157/84 H 160/87 H Pulse Oximetry 100 100 100 02/10/20 18:00 02/10/20 18:15 02/10/20 18:30 Pulse Rate 65 66 73 Respiratory Rate 22 16 23 Blood Pressure 160/87 H 159/91 H 155/90 H Pulse Oximetry 100 100 100 02/10/20 18:45 02/10/20 19:00 02/10/20 19:15 Pulse Rate 68 65 65 Respiratory Rate 33 H 25 H 19 Blood Pressure 177/87 H 169/90 H 170/93 H Pulse Oximetry 87 L 100 99 02/10/20 19:30 02/10/20 19:45 02/10/20 19:50 Pulse Rate 66 69 72 Respiratory Rate 24 32 H 14 Blood Pressure 179/97 H 183/99 H 194/108 H Pulse Oximetry 98 81 L 99 02/10/20 19:52 02/10/20 19:55 02/10/20 20:00 Pulse Rate 78 69 72 Respiratory Rate 27 H Blood Pressure 238/116 H 203/93 H 185/99 H Pulse Oximetry 94 98 02/10/20 20:15 02/10/20 20:30 Pulse Rate 69 69 Respiratory Rate 15 15 Blood Pressure 181/102 H 191/105 H Pulse Oximetry 99 95 Medical Decision Making <Domonique Chavez, DO - Last Filed: 02/18/20 07:17> Lab Data Lab results reviewed: Yes I reviewed the patient's lab results. Result diagrams: 02/10/20 16:40 02/10/20 16:40 Labs: Lab Results 02/10/20 02/10/20 02/10/20 Range/Units 16:40 16:40 16:40 WBC 14.6 H (4.5-11.0) X10^3/uL RBC 3.76 L (4.5-5.9) X10^6/uL Hgb 11.6 L (13.5-17.5) g/dL Hct 35.4 L (41-53) % MCV 94.0 (80-100) fL MCH 30.9 (26-34) PG MCHC 32.8 (30-36) % RDW 13.3 (11.6-14.8) % Plt Count 239 (150-400) X10^3/uL Neut % (Auto) 47.0 L (50-75) % Lymph % (Auto) 46.1 H (25-40) % [place] % (Auto) 5.4 (3-14) % Eos % (Auto) 0.8 L (2-4) % Baso % (Auto) 0.7 (0-2) % Neut # (Auto) 6800 (7253-2543) /uL Lymph # (Auto) 6700 H (2901-1641) /uL [place] # (Auto) 800 (0-900) /uL Eos # (Auto) 100 (0-450) /uL Baso # (Auto) 100 (0-100) /uL VBG pH (7.33-7.43) VBG pCO2 (45-50) mmHg VBG pO2 (35-45) mmHg VBG HCO3 (23-28) mmol/L VBG Total CO2 (24-29) mmol/L VBG O2 Saturation (70-75) % VBG Base Excess (0-4) mmol/L Sodium 135 L (137-145) mmol/L Potassium 4.8 (3.4-5.1) mmol/L Chloride 99 (98-107) mmol/L Carbon Dioxide 28 (22-32) mmol/L BUN 35 H (9-20) mg/dL Creatinine 0.90 (0.66-1.25) mg/dL Estimated GFR > 60.0 (>60) mL/min BUN/Creatinine Ratio 38.9 H (6-22) Glucose 482 H (80-110) mg/dL Lactate (0.7-2.1) mmol/L Calcium 10.5 H (8.4-10.2) mg/dL Total Bilirubin 0.6 (0.2-1.3) mg/dL AST 26 (17-59) IU/L ALT 18 (<50) IU/L Alkaline Phosphatase 161 H (38-126) U/L Total Creatine Kinase (55-170) U/L CK-MB (CK-2) CK-MB (CK-2) Rel Index Troponin I (0.01-0.034) ng/mL Total Protein 6.6 (6.3-8.2) g/dL Albumin 3.8 (3.5-5.0) g/dL Globulin 2.8 (1.7-4.1) g/dL Albumin/Globulin Ratio 1.4 (1.0-2.8) Procalcitonin < 0.05 (<0.5) ng/mL Urine Color Urine Appearance Urine pH (4.5-8.0) Ur Specific [place] (1.000-1.035) Urine Protein (Negative) Urine Glucose (UA) (Negative) g/dL Urine Ketones (NEGATIVE) Urine Occult Blood (Negative) Urine Nitrate (Negative) Urine Bilirubin (NEGATIVE) Urine Urobilinogen (0.2) E.U./dL Ur Leukocyte Esterase (NEGATIVE) Urine RBC Urine WBC Ur Squamous Epith Cells Ur Transition Epith Cell Ur Renal Epithelial Cell Calcium Oxalate Crystal Uric Acid Crystals Triple Phos Crystals Other Crystals Amorphous Sediment Urine Bacteria Hyaline Casts Granular Casts RBC Casts WBC Casts Other Casts Urine Mucus Urine Trichomonas Urine Yeast Urine Sperm Ur Culture Indicated? Micro UA Comment Ketones 0.12 (<0.27) mmol/L 02/10/20 02/10/20 02/10/20 Range/Units 16:40 16:52 17:40 WBC (4.5-11.0) X10^3/uL RBC (4.5-5.9) X10^6/uL Hgb (13.5-17.5) g/dL Hct (41-53) % MCV (80-100) fL MCH (26-34) PG MCHC (30-36) % RDW (11.6-14.8) % Plt Count (150-400) X10^3/uL Neut % (Auto) (50-75) % Lymph % (Auto) (25-40) % [place] % (Auto) (3-14) % Eos % (Auto) (2-4) % Baso % (Auto) (0-2) % Neut # (Auto) (5539-9394) /uL Lymph # (Auto) (4107-2420) /uL [place] # (Auto) (0-900) /uL Eos # (Auto) (0-450) /uL Baso # (Auto) (0-100) /uL VBG pH 7.40 (7.33-7.43) VBG pCO2 47.0 (45-50) mmHg VBG pO2 31 L (35-45) mmHg VBG HCO3 29 H (23-28) mmol/L VBG Total CO2 31 H (24-29) mmol/L VBG O2 Saturation 60 L (70-75) % VBG Base Excess 5.0 H (0-4) mmol/L Sodium (137-145) mmol/L Potassium (3.4-5.1) mmol/L Chloride (98-107) mmol/L Carbon Dioxide (22-32) mmol/L BUN (9-20) mg/dL Creatinine (0.66-1.25) mg/dL Estimated GFR (>60) mL/min BUN/Creatinine Ratio (6-22) Glucose (80-110) mg/dL Lactate 2.5 H (0.7-2.1) mmol/L Calcium (8.4-10.2) mg/dL Total Bilirubin (0.2-1.3) mg/dL AST (17-59) IU/L ALT (<50) IU/L Alkaline Phosphatase (38-126) U/L Total Creatine Kinase (55-170) U/L CK-MB (CK-2) CK-MB (CK-2) Rel Index Troponin I (0.01-0.034) ng/mL Total Protein (6.3-8.2) g/dL Albumin (3.5-5.0) g/dL Globulin (1.7-4.1) g/dL Albumin/Globulin Ratio (1.0-2.8) Procalcitonin (<0.5) ng/mL Urine Color Urine Appearance Urine pH (4.5-8.0) Ur Specific [place] (1.000-1.035) Urine Protein (Negative) Urine Glucose (UA) (Negative) g/dL Urine Ketones (NEGATIVE) Urine Occult Blood (Negative) Urine Nitrate (Negative) Urine Bilirubin (NEGATIVE) Urine Urobilinogen (0.2) E.U./dL Ur Leukocyte Esterase (NEGATIVE) Urine RBC Cancelled Urine WBC Cancelled Ur Squamous Epith Cells Cancelled Ur Transition Epith Cell Cancelled Ur Renal Epithelial Cell Cancelled Calcium Oxalate Crystal Cancelled Uric Acid Crystals Cancelled Triple Phos Crystals Cancelled Other Crystals Cancelled Amorphous Sediment Cancelled Urine Bacteria Cancelled Hyaline Casts Cancelled Granular Casts Cancelled RBC Casts Cancelled WBC Casts Cancelled Other Casts Cancelled Urine Mucus Cancelled Urine Trichomonas Cancelled Urine Yeast Cancelled Urine Sperm Cancelled Ur Culture Indicated? Cancelled Micro UA Comment Cancelled Ketones (<0.27) mmol/L 02/10/20 02/10/20 02/10/20 Range/Units 17:40 17:50 18:59 WBC (4.5-11.0) X10^3/uL RBC (4.5-5.9) X10^6/uL Hgb (13.5-17.5) g/dL Hct (41-53) % MCV (80-100) fL MCH (26-34) PG MCHC (30-36) % RDW (11.6-14.8) % Plt Count (150-400) X10^3/uL Neut % (Auto) (50-75) % Lymph % (Auto) (25-40) % [place] % (Auto) (3-14) % Eos % (Auto) (2-4) % Baso % (Auto) (0-2) % Neut # (Auto) (9206-1240) /uL Lymph # (Auto) (5143-2050) /uL [place] # (Auto) (0-900) /uL Eos # (Auto) (0-450) /uL Baso # (Auto) (0-100) /uL VBG pH (7.33-7.43) VBG pCO2 (45-50) mmHg VBG pO2 (35-45) mmHg VBG HCO3 (23-28) mmol/L VBG Total CO2 (24-29) mmol/L VBG O2 Saturation (70-75) % VBG Base Excess (0-4) mmol/L Sodium (137-145) mmol/L Potassium (3.4-5.1) mmol/L Chloride (98-107) mmol/L Carbon Dioxide (22-32) mmol/L BUN (9-20) mg/dL Creatinine (0.66-1.25) mg/dL Estimated GFR (>60) mL/min BUN/Creatinine Ratio (6-22) Glucose (80-110) mg/dL Lactate 1.7 (0.7-2.1) mmol/L Calcium (8.4-10.2) mg/dL Total Bilirubin (0.2-1.3) mg/dL AST (17-59) IU/L ALT (<50) IU/L Alkaline Phosphatase (38-126) U/L Total Creatine Kinase 28 L (55-170) U/L CK-MB (CK-2) TNP CK-MB (CK-2) Rel Index TNP Troponin I < 0.012 (0.01-0.034) ng/mL Total Protein (6.3-8.2) g/dL Albumin (3.5-5.0) g/dL Globulin (1.7-4.1) g/dL Albumin/Globulin Ratio (1.0-2.8) Procalcitonin (<0.5) ng/mL Urine Color Yellow Urine Appearance Clear Urine pH 6.0 (4.5-8.0) Ur Specific [place] <=1.005 (1.000-1.035) Urine Protein Negative (Negative) Urine Glucose (UA) 2+ H (Negative) g/dL Urine Ketones Negative (NEGATIVE) Urine Occult Blood Negative (Negative) Urine Nitrate Negative (Negative) Urine Bilirubin Negative (NEGATIVE) Urine Urobilinogen 0.2 (0.2) E.U./dL Ur Leukocyte Esterase Negative (NEGATIVE) Urine RBC None seen Urine WBC None seen Ur Squamous Epith Cells Ur Transition Epith Cell Ur Renal Epithelial Cell Calcium Oxalate Crystal Uric Acid Crystals Triple Phos Crystals Other Crystals Amorphous Sediment Urine Bacteria None seen Hyaline Casts Granular Casts RBC Casts WBC Casts Other Casts Urine Mucus Urine Trichomonas Urine Yeast Urine Sperm Ur Culture Indicated? Cult not indicated Micro UA Comment Microscopic normal Ketones (<0.27) mmol/L Point of Care Testing Glucose POC 346 Urine Dip Bedside Urine Glucose 1000 mg/dl Bedside Urine Bilirubin - Negative Bedside Urine Ketone - Negative Urine Specific [place] 1.015 Bedside Urine Occult Blood - Negative Bedside Urine pH 6.0 Bedside Urine Protein - Negative Bedside Urine Urobilinogen - Negative Bedside Urine Nitrite - Negative Bedside Urine Leukocytes +/- 15 Esterase Point of care testing: Point of Care Testing Glucose POC 346 Urine Dip Bedside Urine Glucose 1000 mg/dl Bedside Urine Bilirubin - Negative Bedside Urine Ketone - Negative Urine Specific [place] 1.015 Bedside Urine Occult Blood - Negative Bedside Urine pH 6.0 Bedside Urine Protein - Negative Bedside Urine Urobilinogen - Negative Bedside Urine Nitrite - Negative Bedside Urine Leukocytes +/- 15 Esterase Imaging Data Chest x-ray: Radiologist's Impression: PROCEDURE: XR CHEST 1V INDICATIONS: Weakness, unresponsiveness TECHNIQUE: One view of the chest was acquired. COMPARISON: [facility], CT, CT CHEST ABD PEL W CON, 01/05/2020, 4:06. FINDINGS: Surgical changes and devices: None. Lungs and pleura: Hyperexpanded lungs consistent with COPD and emphysema. No focal consolidation. No pleural effusions or pneumothorax. Mediastinum: Mediastinal contours appear normal. Aortic atherosclerosis. Heart size is normal. Bones and chest wall: No suspicious bony lesions. Overlying soft tissues appear unremarkable. IMPRESSION: No acute cardiopulmonary process demonstrated radiographically. Dictated by: Abilio Eastman M.D. on 02/10/2020 at 17:40 Approved by: Abilio Eastman M.D. on 02/10/2020 at 17:42 ECG Data Attestation: I personally reviewed and interpreted this ECG as follows: Prior ECG tracings: available for review Interpretation: Sinus rhythm rate 53648 QRS [address] changes no T-wave inversions similar to previous EKG MDM Narrative Medical decision making narrative: Patient is not in DKA he does have some hyperglycemia but pH is normal and there is no anion gap. states that she has home health and PT and OT there to help her. Signed out to Dr. Gomez. Awaiting UA and ambulation trial <Dylan Gomez DO - Last Filed: 02/11/20 01:33> Lab Data Labs: Lab Results 02/10/20 02/10/20 02/10/20 Range/Units 16:40 16:40 16:40 WBC 14.6 H (4.5-11.0) X10^3/uL RBC 3.76 L (4.5-5.9) X10^6/uL Hgb 11.6 L (13.5-17.5) g/dL Hct 35.4 L (41-53) % MCV 94.0 (80-100) fL MCH 30.9 (26-34) PG MCHC 32.8 (30-36) % RDW 13.3 (11.6-14.8) % Plt Count 239 (150-400) X10^3/uL Neut % (Auto) 47.0 L (50-75) % Lymph % (Auto) 46.1 H (25-40) % [place] % (Auto) 5.4 (3-14) % Eos % (Auto) 0.8 L (2-4) % Baso % (Auto) 0.7 (0-2) % Neut # (Auto) 6800 (4012-4957) /uL Lymph # (Auto) 6700 H (8263-3943) /uL [place] # (Auto) 800 (0-900) /uL Eos # (Auto) 100 (0-450) /uL Baso # (Auto) 100 (0-100) /uL VBG pH (7.33-7.43) VBG pCO2 (45-50) mmHg VBG pO2 (35-45) mmHg VBG HCO3 (23-28) mmol/L VBG Total CO2 (24-29) mmol/L VBG O2 Saturation (70-75) % VBG Base Excess (0-4) mmol/L Sodium 135 L (137-145) mmol/L Potassium 4.8 (3.4-5.1) mmol/L Chloride 99 (98-107) mmol/L Carbon Dioxide 28 (22-32) mmol/L BUN 35 H (9-20) mg/dL Creatinine 0.90 (0.66-1.25) mg/dL Estimated GFR > 60.0 (>60) mL/min BUN/Creatinine Ratio 38.9 H (6-22) Glucose 482 H (80-110) mg/dL Lactate (0.7-2.1) mmol/L Calcium 10.5 H (8.4-10.2) mg/dL Total Bilirubin 0.6 (0.2-1.3) mg/dL AST 26 (17-59) IU/L ALT 18 (<50) IU/L Alkaline Phosphatase 161 H (38-126) U/L Total Creatine Kinase (55-170) U/L CK-MB (CK-2) CK-MB (CK-2) Rel Index Troponin I (0.01-0.034) ng/mL Total Protein 6.6 (6.3-8.2) g/dL Albumin 3.8 (3.5-5.0) g/dL Globulin 2.8 (1.7-4.1) g/dL Albumin/Globulin Ratio 1.4 (1.0-2.8) Procalcitonin < 0.05 (<0.5) ng/mL Urine Color Urine Appearance Urine pH (4.5-8.0) Ur Specific [place] (1.000-1.035) Urine Protein (Negative) Urine Glucose (UA) (Negative) g/dL Urine Ketones (NEGATIVE) Urine Occult Blood (Negative) Urine Nitrate (Negative) Urine Bilirubin (NEGATIVE) Urine Urobilinogen (0.2) E.U./dL Ur Leukocyte Esterase (NEGATIVE) Urine RBC Urine WBC Ur Squamous Epith Cells Ur Transition Epith Cell Ur Renal Epithelial Cell Calcium Oxalate Crystal Uric Acid Crystals Triple Phos Crystals Other Crystals Amorphous Sediment Urine Bacteria Hyaline Casts Granular Casts RBC Casts WBC Casts Other Casts Urine Mucus Urine Trichomonas Urine Yeast Urine Sperm Ur Culture Indicated? Micro UA Comment Ketones 0.12 (<0.27) mmol/L 02/10/20 02/10/20 02/10/20 Range/Units 16:40 16:52 17:40 WBC (4.5-11.0) X10^3/uL RBC (4.5-5.9) X10^6/uL Hgb (13.5-17.5) g/dL Hct (41-53) % MCV (80-100) fL MCH (26-34) PG MCHC (30-36) % RDW (11.6-14.8) % Plt Count (150-400) X10^3/uL Neut % (Auto) (50-75) % Lymph % (Auto) (25-40) % [place] % (Auto) (3-14) % Eos % (Auto) (2-4) % Baso % (Auto) (0-2) % Neut # (Auto) (3580-8784) /uL Lymph # (Auto) (0438-2092) /uL [place] # (Auto) (0-900) /uL Eos # (Auto) (0-450) /uL Baso # (Auto) (0-100) /uL VBG pH 7.40 (7.33-7.43) VBG pCO2 47.0 (45-50) mmHg VBG pO2 31 L (35-45) mmHg VBG HCO3 29 H (23-28) mmol/L VBG Total CO2 31 H (24-29) mmol/L VBG O2 Saturation 60 L (70-75) % VBG Base Excess 5.0 H (0-4) mmol/L Sodium (137-145) mmol/L Potassium (3.4-5.1) mmol/L Chloride (98-107) mmol/L Carbon Dioxide (22-32) mmol/L BUN (9-20) mg/dL Creatinine (0.66-1.25) mg/dL Estimated GFR (>60) mL/min BUN/Creatinine Ratio (6-22) Glucose (80-110) mg/dL Lactate 2.5 H (0.7-2.1) mmol/L Calcium (8.4-10.2) mg/dL Total Bilirubin (0.2-1.3) mg/dL AST (17-59) IU/L ALT (<50) IU/L Alkaline Phosphatase (38-126) U/L Total Creatine Kinase (55-170) U/L CK-MB (CK-2) CK-MB (CK-2) Rel Index Troponin I (0.01-0.034) ng/mL Total Protein (6.3-8.2) g/dL Albumin (3.5-5.0) g/dL Globulin (1.7-4.1) g/dL Albumin/Globulin Ratio (1.0-2.8) Procalcitonin (<0.5) ng/mL Urine Color Urine Appearance Urine pH (4.5-8.0) Ur Specific [place] (1.000-1.035) Urine Protein (Negative) Urine Glucose (UA) (Negative) g/dL Urine Ketones (NEGATIVE) Urine Occult Blood (Negative) Urine Nitrate (Negative) Urine Bilirubin (NEGATIVE) Urine Urobilinogen (0.2) E.U./dL Ur Leukocyte Esterase (NEGATIVE) Urine RBC Cancelled Urine WBC Cancelled Ur Squamous Epith Cells Cancelled Ur Transition Epith Cell Cancelled Ur Renal Epithelial Cell Cancelled Calcium Oxalate Crystal Cancelled Uric Acid Crystals Cancelled Triple Phos Crystals Cancelled Other Crystals Cancelled Amorphous Sediment Cancelled Urine Bacteria Cancelled Hyaline Casts Cancelled Granular Casts Cancelled RBC Casts Cancelled WBC Casts Cancelled Other Casts Cancelled Urine Mucus Cancelled Urine Trichomonas Cancelled Urine Yeast Cancelled Urine Sperm Cancelled Ur Culture Indicated? Cancelled Micro UA Comment Cancelled Ketones (<0.27) mmol/L 02/10/20 02/10/20 02/10/20 Range/Units 17:40 17:50 18:59 WBC (4.5-11.0) X10^3/uL RBC (4.5-5.9) X10^6/uL Hgb (13.5-17.5) g/dL Hct (41-53) % MCV (80-100) fL MCH (26-34) PG MCHC (30-36) % RDW (11.6-14.8) % Plt Count (150-400) X10^3/uL Neut % (Auto) (50-75) % Lymph % (Auto) (25-40) % [place] % (Auto) (3-14) % Eos % (Auto) (2-4) % Baso % (Auto) (0-2) % Neut # (Auto) (1580-4561) /uL Lymph # (Auto) (0379-4977) /uL [place] # (Auto) (0-900) /uL Eos # (Auto) (0-450) /uL Baso # (Auto) (0-100) /uL VBG pH (7.33-7.43) VBG pCO2 (45-50) mmHg VBG pO2 (35-45) mmHg VBG HCO3 (23-28) mmol/L VBG Total CO2 (24-29) mmol/L VBG O2 Saturation (70-75) % VBG Base Excess (0-4) mmol/L Sodium (137-145) mmol/L Potassium (3.4-5.1) mmol/L Chloride (98-107) mmol/L Carbon Dioxide (22-32) mmol/L BUN (9-20) mg/dL Creatinine (0.66-1.25) mg/dL Estimated GFR (>60) mL/min BUN/Creatinine Ratio (6-22) Glucose (80-110) mg/dL Lactate 1.7 (0.7-2.1) mmol/L Calcium (8.4-10.2) mg/dL Total Bilirubin (0.2-1.3) mg/dL AST (17-59) IU/L ALT (<50) IU/L Alkaline Phosphatase (38-126) U/L Total Creatine Kinase 28 L (55-170) U/L CK-MB (CK-2) TNP CK-MB (CK-2) Rel Index TNP Troponin I < 0.012 (0.01-0.034) ng/mL Total Protein (6.3-8.2) g/dL Albumin (3.5-5.0) g/dL Globulin (1.7-4.1) g/dL Albumin/Globulin Ratio (1.0-2.8) Procalcitonin (<0.5) ng/mL Urine Color Yellow Urine Appearance Clear Urine pH 6.0 (4.5-8.0) Ur Specific [place] <=1.005 (1.000-1.035) Urine Protein Negative (Negative) Urine Glucose (UA) 2+ H (Negative) g/dL Urine Ketones Negative (NEGATIVE) Urine Occult Blood Negative (Negative) Urine Nitrate Negative (Negative) Urine Bilirubin Negative (NEGATIVE) Urine Urobilinogen 0.2 (0.2) E.U./dL Ur Leukocyte Esterase Negative (NEGATIVE) Urine RBC None seen Urine WBC None seen Ur Squamous Epith Cells Ur Transition Epith Cell Ur Renal Epithelial Cell Calcium Oxalate Crystal Uric Acid Crystals Triple Phos Crystals Other Crystals Amorphous Sediment Urine Bacteria None seen Hyaline Casts Granular Casts RBC Casts WBC Casts Other Casts Urine Mucus Urine Trichomonas Urine Yeast Urine Sperm Ur Culture Indicated? Cult not indicated Micro UA Comment Microscopic normal Ketones (<0.27) mmol/L Point of Care Testing Glucose POC 346 Urine Dip Bedside Urine Glucose 1000 mg/dl Bedside Urine Bilirubin - Negative Bedside Urine Ketone - Negative Urine Specific [place] 1.015 Bedside Urine Occult Blood - Negative Bedside Urine pH 6.0 Bedside Urine Protein - Negative Bedside Urine Urobilinogen - Negative Bedside Urine Nitrite - Negative Bedside Urine Leukocytes +/- 15 Esterase Point of care testing: Point of Care Testing Glucose POC 346 Urine Dip Bedside Urine Glucose 1000 mg/dl Bedside Urine Bilirubin - Negative Bedside Urine Ketone - Negative Urine Specific [place] 1.015 Bedside Urine Occult Blood - Negative Bedside Urine pH 6.0 Bedside Urine Protein - Negative Bedside Urine Urobilinogen - Negative Bedside Urine Nitrite - Negative Bedside Urine Leukocytes +/- 15 Esterase Discharge Plan Departure Patient Disposition: Home Clinical Impression: Weakness, Acute dehydration, Acute hyperglycemia Discharge Date/Time: 02/10/20 22:15 Instructions: DI for Failure to Thrive Prescriptions: No Action metformin [Glucophage] 1,000 MG tablet 1,000 mg PO BIDCC Qty: 0 RF: 0 atorvastatin 10 mg tablet 10 mg PO DAILY RF: 0 amlodipine 5 mg tablet 5 mg PO DAILY RF: 0 losartan 100 mg tablet 100 mg PO DAILY RF: 0 Creon 12,000-38,000 -60,000 unit capsule,delayed release(DR/EC) 0 cap PO DIRECTED RF: 0 lidocaine 5 % adhesive patch,medicated 1 patch TOP DAILY Qty: 15 RF: 0 Referrals: Christina Mae MD [Primary Care Provider] -
[2020-02-10 17:37] LABS: Procalcitonin < 0.05 ng/mL (<0.5)
[2020-02-10 17:38] LABS: HEMOLYSIS 91 (0-50); Ketones (Beta-Hydroxybutyrate) 0.12 mmol/L (<0.27)
[2020-02-10 18:13] LABS: HCO3 VBG 29 mmol/L (23-28); PO2 VBG 31 mmHg (35-45); Total CO2 VBG 31 mmol/L (24-29)
[2020-02-10 18:14] LABS: Oxygen Saturation VBG 60 % (70-75)
[2020-02-10 18:21] LABS: Creatine Kinase 28 U/L (55-170)
[2020-02-10 18:34] LABS: Troponin I < 0.012 ng/mL (0.01-0.034)
[2020-02-10 18:52] LABS: Reflexed Lactate in 2 Hours Y
[2020-02-10 19:16] LABS: Lactate 2HR (Lactic Acid Rflx) 1.7 mmol/L (0.7-2.1)
[2020-02-10 20:47] LABS: Bacteria Urine None Seen; RBC Urine None Seen (0-5/HPF); WBC Urine None Seen (0-5/HPF)
[2020-02-10 20:49] LABS: Appearance Urine UA CLEAR; Bilirubin Urine UA NEGATIVE (NEGATIVE); Color Urine UA YELLOW; Glucose Urine UA 2+ g/dL (Negative); Ketones Urine UA NEGATIVE (NEGATIVE); Leukocyte Esterase Urine UA NEGATIVE (NEGATIVE); Nitrite Urine UA NEGATIVE (Negative); Occult Blood Urine UA NEGATIVE (Negative); Protein Urine UA NEGATIVE (Negative); Specific Gravity Urine UA <=1.005 (1.000-1.035); Urobilinogen Urine UA 0.2 E.U./dL (0.2)
[2020-02-10 20:50] LABS: Culture Indicated Urine Cult Not Indicated; Urine Comments Microscopic Normal
== END 2020-02-10 22:15 | disposition home or self-care (01) ==
PROVIDERS: Emergency Medicine; Emergency Provider Emergency Medicine; Family Provider Student in an Organized Health Care Education/Training Program; PCP Student in an Organized Health Care Education/Training Program
DX: E11.65 Type 2 diabetes mellitus with hyperglycemia (principal); R53.1 Weakness; E86.0 Dehydration
CPT/HCPCS: 36415; 51798; 71045; 80053; 81001; 81003; 82009; 82550; 82805; 82962; 83605; 84145; 84484; 85025; 87040; 93005; 96360; 96361; 99284; 99285